=== PATIENT | male | born 1945 | race Caucasian/White ===

== ENCOUNTER 2020-05-24 14:47 | Inpatient (IN) | payer OTHER, MEDICARE ==
[~2020-05-24] VITALS: Ht 170.2 cm; Wt 77.5 kg
[2020-05-24 15:43] LABS: Hematocrit 38.9 % (37.0-53.0); Hemoglobin 12.9 g/dL (13.5-17.5); Mean Corpuscular HGB 33.6 pg (26.0-34.0); Mean Corpuscular HGB Conc 33.2 g/dL (31.5-36.5); Mean Corpuscular Volume 101 fL (80-100); Mean Platelet Volume 10.8 fL (9.1-12.4); NRBC ABSOLUTE 0.14 K/mm3 (0.00-0.02); NRBC Auto 0.6 /100 WBC (0.0-0.2); RDW Coefficient Variation 15.4 % (11.7-14.2); RDW Standard Deviation 56.7 fL (35.1-46.3); Red Blood Cell Count 3.84 M/mm3 (4.30-5.90); White Blood Cell Count 21.75 K/mm3 (4.00-11.30)
[2020-05-24 15:54] LABS: Platelet Count 42 K/mm3 (150-400)
[2020-05-24 15:55] LABS: International Normalized Ratio 1.07; Prothrombin Time Results 11.4 Sec (9.7-11.5)
[2020-05-24 15:57] LABS: Magnesium, Blood 2.1 mg/dL (1.6-2.4); Troponin I <0.015 ng/mL (0.000-0.040)
[2020-05-24 15:58] LABS: Alanine Aminotransfer (ALT/SGP 23 U/L (12-78); Albumin, Blood 4.1 g/dL (3.4-5.0); Alk Phos 64 U/L (50-136); Anion Gap 6 mmol/L (6-16); Aspartate Aminotrans (AST/SGOT 23 U/L (12-37); Bilirubin, Total 0.6 mg/dL (0.1-1.0); Blood Urea Nitrogen 17 mg/dL (8-24); Bun/Creatinine Ratio 19.7 (12.0-20.0); CO2, Blood 25 mmol/L (21-32); Calcium, Blood 8.9 mg/dL (8.5-10.1); Chloride, Blood 109 mmol/L (98-108); Creatinine, Blood 0.86 mg/dL (0.60-1.20); Glomerular Filtration Rate >60 (60-); Glucose, Blood 109 mg/dL (70-99); Potassium, Blood 4.8 mmol/L (3.5-5.5); Sodium, Blood 140 mmol/L (136-145); Total Protein, Blood 8.1 g/dL (6.4-8.2)
[2020-05-24 16:26] LABS: BASOPHILS PERCENT MAN 0 % (0-2); EOSINOPHILS PERCENT MAN 0 % (0-6); LYMPHOCYTES ABSOLUTE MAN 21.09 K/mm3 (0.84-5.20); LYMPHOCYTES PERCENT MAN 97 % (21-46); MONOCYTES PERCENT MAN 0 % (4-13); NEUTROPHILS ABSOLUTE MAN 0.65 K/mm3 (1.96-9.15); SEG NEUTROPHILS PERCENT MAN 3 % (41-73); TOTAL CELLS COUNTED 100
[2020-05-24] MEDS ORDERED: Hytrin2 MG PO (18:16)
[2020-05-24] MEDS ORDERED: ROPI.25 PO (18:16)
[2020-05-24] MEDS ORDERED: CYCL10 PO (18:16)
[2020-05-24] MEDS ORDERED: FINA5 PO (18:17)
[2020-05-25 04:18] LABS: BASOPHILS ABSOLUTE AUTO 0.03 K/mm3 (0.00-0.23); BASOPHILS PERCENT AUTO 0 % (0-2); EOSINOPHILS ABSOLUTE AUTO 0.07 K/mm3 (0.00-0.68); EOSINOPHILS PERCENT AUTO 0 % (0-6); Hematocrit 37.8 % (37.0-53.0); Hemoglobin 12.8 g/dL (13.5-17.5); Mean Corpuscular HGB 34.4 pg (26.0-34.0); Mean Corpuscular HGB Conc 33.9 g/dL (31.5-36.5); Mean Corpuscular Volume 102 fL (80-100); Mean Platelet Volume 11.8 fL (9.1-12.4); RDW Coefficient Variation 15.5 % (11.7-14.2); Red Blood Cell Count 3.72 M/mm3 (4.30-5.90); White Blood Cell Count 25.61 K/mm3 (4.00-11.30)
[2020-05-25 04:24] LABS: IMMATURE GRAN ABSOLUTE AUTO 0.02 K/mm3 (0.00-0.10); IMMATURE GRAN PERCENT AUTO 0 % (0-1); LYMPHOCYTES ABSOLUTE AUTO 23.63 K/mm3 (0.84-5.20); LYMPHOCYTES PERCENT AUTO 92 % (21-46); MONOCYTES ABSOLUTE AUTO 1.18 K/mm3 (0.16-1.47); MONOCYTES PERCENT AUTO 5 % (4-13); NEUTROPHILS ABSOLUTE AUTO 0.68 K/mm3 (1.96-9.15); NEUTROPHILS PERCENT AUTO 3 % (41-73)
[2020-05-25 04:25] LABS: Platelet Count 46 K/mm3 (150-400)
[2020-05-25 04:28] LABS: International Normalized Ratio 1.08; Prothrombin Time Results 11.5 Sec (9.7-11.5)
[2020-05-25 04:36] LABS: Anion Gap 5 mmol/L (6-16); Blood Urea Nitrogen 17 mg/dL (8-24); Bun/Creatinine Ratio 19.1 (12.0-20.0); CO2, Blood 25 mmol/L (21-32); Chloride, Blood 110 mmol/L (98-108); Creatinine, Blood 0.89 mg/dL (0.60-1.20); Glomerular Filtration Rate >60 (60-); Glucose, Blood 101 mg/dL (70-99); Potassium, Blood 4.1 mmol/L (3.5-5.5); Sodium, Blood 140 mmol/L (136-145)
--- NOTE | 2020-05-25 05:27 | NUR ---
SHIFT SUMMARY PT ARRIVED FROM ED AT BEGINNING OF SHIFT. PT ALERT AND ORIENTED X 4. HR TACHYCARDIC. PT ON CARDIZEM GTT. CURRENTLY AT 5 MG/HR. HR IN 110'S. BP STABLE. PT REPORTS NO CP OR PRESSURE. SCD ON R LEG. OXYGEN SATURATION MAINTAINED ABOVE 95%. PT ABLE TO TURN SELF IN BED NEEDED. PT CONTINENT OF URINE AND STOOL. WILL CONTINUE TO MONITOR UNTIL REPORT GIVEN TO DAYSEUNICE MCBRIDE.
--- NOTE | 2020-05-25 12:23 | NUR ---
Echocardiogram performed.
[2020-05-25 14:42] LABS: Performing Lab SYMBIODX; Test Name FLOW CYTOMETRY
[2020-05-25 15:19] LABS: Influenza A, PCR Negative (NEGATIVE); Influenza B, PCR Negative (NEGATIVE); Resp Syncytial Virus, PCR Negative (NEGATIVE); SARS-Cov-2 (COVID-19) PCR, MMC Negative (NEGATIVE)
--- NOTE | 2020-05-25 15:46 | NUR ---
PATIENT LEFT FOR IVC FILTER PLACEMENT, ALERT AND ORIENTED NO SIGNS OF ACUTE DISTRESS.
--- NOTE | 2020-05-25 17:12 | NUR ---
PATIENT RETURNED FROM IVC FILTER PLACEMENT, DENIES CHEST PAIN/PRESSURE, ALERT AND ORIENTED, DENIES PAIN. PATIENT REMAINS ON CARDIZEM GTT THIS SHIFT, 10 MG/HR AT THIS TIME, HR IN 90s-110s. PATIENT HAD EPISODE OF EMESIS, HR INCREASED TO 150s, RETURNED TO PREVIOUS RATE W/IN 10 MINUTES. NO SIGNS OF DISCHARGE OR TENDERNESS AT PROCEDURE SITE.
--- NOTE | 2020-05-26 05:34 | NUR ---
SHIFT SUMMARY PT UNABLE TO SLEEP T/O NIGHT. PT ALERT AND ORIENTED X 4. CARDIZEM GTT STOPPED AT 2349. HR 90'S-110'S. PT REPORTS NO CP OR PRESSURE. BP STABLE. SURGICAL SITE WNL. DRESSING C/D/I. OXYGEN SATURATION MAINTAINED ABOVE 92% ON RA. WILL CONTINUE TO MONITOR UNTIL REPORT GIVEN TO DAYSHIFT RN.
[2020-05-26 08:09] LABS: IMMUNOGLOBULIN A, QN, SERUM 130 mg/dL (61-437); IMMUNOGLOBULIN G, QN, SERUM 1755 mg/dL (603-1613); IMMUNOGLOBULIN M, QN, SERUM 28 mg/dL (15-143)
--- NOTE | 2020-05-26 08:20 | NUR ---
UPDATE: Pt HR elevated to 150-160. Restarted cardizem gtt at 5mg/hr and PO PRN cardizem given per orders. Will monitor and treat.
--- NOTE | 2020-05-26 16:05 | NUR ---
UPDATE: BP stable. HR 90-110 range. Stopped cardizem gtt. Pt denies needs. States that he is feeling good. Call light in reach.
--- NOTE | 2020-05-26 19:48 | NUR ---
NO ACUTE EVENTS THIS SHIFT, PATIENT ALERT AND ORIENTED AND DENIED CHEST PAIN/PRESSURE THIS SHIFT. PATIENT'S HEART RATE WAS MAINTAINING 110S-120S AT START OF SHIFT WITH INCREASES TO 140S-150S WITH ACTIVITY. CARDIZEM DRIP RESTARTED PER EMAR, RATE DECREASED AND REMAINED IN 90S-100S THROUGH MOST OF SHIFT. DR. GONZALEZ AT BEDSIDE, INSTRUCTED CHARGE NURSE YARI MCBRIDE TO STOP CARDIZEM DRIP, STOPPED PER EMAR. PATIENT ABLE TO AMBULATE INDEPENDENTLY IN ROOM, NO PAIN OR DISCOMFORT NOTED IN LLE. PATIENT STATES RELIEF THAT LLE SWELLING HAS RESOLVED.
[2020-05-27 03:58] LABS: BASOPHILS ABSOLUTE AUTO 0.05 K/mm3 (0.00-0.23); BASOPHILS PERCENT AUTO 0 % (0-2); EOSINOPHILS ABSOLUTE AUTO 0.08 K/mm3 (0.00-0.68); EOSINOPHILS PERCENT AUTO 0 % (0-6); Hemoglobin 13.2 g/dL (13.5-17.5); Mean Corpuscular HGB 33.5 pg (26.0-34.0); Mean Corpuscular Volume 102 fL (80-100); NRBC ABSOLUTE 0.03 K/mm3 (0.00-0.02); NRBC Auto 0.1 /100 WBC (0.0-0.2); RDW Coefficient Variation 15.4 % (11.7-14.2); RDW Standard Deviation 57.4 fL (35.1-46.3); Red Blood Cell Count 3.94 M/mm3 (4.30-5.90); White Blood Cell Count 27.24 K/mm3 (4.00-11.30)
[2020-05-27 04:00] LABS: IMMATURE GRAN ABSOLUTE AUTO 0.01 K/mm3 (0.00-0.10); IMMATURE GRAN PERCENT AUTO 0 % (0-1); LYMPHOCYTES ABSOLUTE AUTO 24.84 K/mm3 (0.84-5.20); LYMPHOCYTES PERCENT AUTO 91 % (21-46); MONOCYTES ABSOLUTE AUTO 1.48 K/mm3 (0.16-1.47); MONOCYTES PERCENT AUTO 5 % (4-13); Mean Platelet Volume 11.2 fL (9.1-12.4); NEUTROPHILS ABSOLUTE AUTO 0.78 K/mm3 (1.96-9.15); NEUTROPHILS PERCENT AUTO 3 % (41-73); Platelet Count 51 K/mm3 (150-400)
[2020-05-27 04:15] LABS: Anion Gap 2 mmol/L (6-16); Blood Urea Nitrogen 33 mg/dL (8-24); Bun/Creatinine Ratio 34.2 (12.0-20.0); CO2, Blood 28 mmol/L (21-32); Calcium, Blood 8.9 mg/dL (8.5-10.1); Chloride, Blood 108 mmol/L (98-108); Creatinine, Blood 0.97 mg/dL (0.60-1.20); Glomerular Filtration Rate >60 (60-); Glucose, Blood 92 mg/dL (70-99); Potassium, Blood 4.7 mmol/L (3.5-5.5); Sodium, Blood 138 mmol/L (136-145)
--- NOTE | 2020-05-27 05:32 | NUR ---
SHIFT SUMMARY PT A&O X4. VSS. MONITOR SHOWING AFIB W/ HR AVERAGING 80's-110 W/ OCCASSIONAL, NONSUSTAINED HR INCREASE TO 120's NOTED ON TELEMETRY. SPO2 > 92% ON RA. PT REPORTS LLE SWELLING IMPROVED W/ MINIMAL SWELLING NOTED TO L ANKLE ONLY. NO EVENTS OVER NIGHT.
[2020-05-27] MEDS ORDERED: Lisinopril2.5 MG PO (12:10)
[2020-05-27] MEDS ORDERED: METO25ER PO (12:11)
[2020-05-27] MEDS ORDERED: TAMS.4ER PO (12:12)
[2020-05-27] MEDS ORDERED: XARELTO10 M2 PO (12:12)
--- NOTE | 2020-05-27 12:45 | NUR ---
PATIENT PROVIDED DISCHARGE INFO REGARDING FOLLOW UP PLANS, REASONS TO RETURN TO THE HOSPITAL, AND MEDICATION INFORMATION PER ASHLEY WITH PHARMACY. PATIENT VERBALIZED UNDERSTANDING, NO SIGNS OF ACUTE DISTRESS AT THIS TIME.
[2020-05-29 22:10] LABS: CELLS ANALYZED Comment: (.); CELLS COUNTED Comment: (.); DIRECTOR REVIEW: Comment: (.); FISH RESULT Comment: (.); INTERPRETATION Comment: (.); SPECIMEN TYPE Comment: (.)
[2020-05-31 07:57] LABS: Result SEE LABOUT RESULTS
== END 2020-05-27 13:00 | disposition home or self-care (01) | DRG 299 ==
LOC: ER 14:47 → PCU 14:48
PROVIDERS: Emergency Medicine; Internal Medicine; Internal Medicine Hematology & Oncology; Radiology Diagnostic Radiology; ADMIT Family Medicine
PROC: 3E02340 Introduction of Influenza Vaccine into Muscle, Percutaneous Approach (ICD-10-PCS; 2020-05-24)
PROC: 06H03DZ Insertion of Intraluminal Device into Inferior Vena Cava, Percutaneous Approach (ICD-10-PCS; principal; 2020-05-25)
DX: I82.412 Acute embolism and thrombosis of left femoral vein (principal); I50.43 Acute on chronic combined systolic (congestive) and diastolic (congestive) heart failure; C91.10 Chronic lymphocytic leukemia of B-cell type not having achieved remission; N40.0 Benign prostatic hyperplasia without lower urinary tract symptoms; I82.432 Acute embolism and thrombosis of left popliteal vein; I82.4Y2 Acute embolism and thrombosis of unspecified deep veins of left proximal lower extremity; D69.6 Thrombocytopenia, unspecified; I48.91 Unspecified atrial fibrillation; Z20.822 Contact with and (suspected) exposure to COVID-19; I11.0 Hypertensive heart disease with heart failure; Z23 Encounter for immunization
CPT/HCPCS: 0241U; 36415; 37191; 71045; 71260; 74177; 76937; 80048; 80053; 81263; 82784; 83735; 84443; 84484; 85025; 85610; 88184; 88185; 88271; 88275; 93005; 93010; 93306; 93971; 96365; 96366; 96376; 99152; 99285-25; A9270; C1769; C1880; C1894; G0008; G0378; J1644; J2250; J2405; J2550; J3010; J7040; Q2038; Q9967

== ENCOUNTER 2020-07-09 01:01 | Day surgery (SDC) | payer OTHER, MEDICARE ==
[2020-07-07 09:21] LABS: Hemoglobin 6.9 g/dL (13.5-17.5); Mean Corpuscular HGB 33.5 pg (26.0-34.0); Mean Corpuscular HGB Conc 34.5 g/dL (31.5-36.5); Mean Corpuscular Volume 97 fL (80-100); Mean Platelet Volume 11.4 fL (9.1-12.4); Platelet Count 54 K/mm3 (150-400); RDW Coefficient Variation 17.5 % (11.7-14.2); RDW Standard Deviation 60.3 fL (35.1-46.3); Red Blood Cell Count 2.06 M/mm3 (4.30-5.90)
[2020-07-07 09:32] LABS: White Blood Cell Count 0.33 K/mm3 (4.00-11.30)
[2020-07-07 09:49] LABS: Alanine Aminotransfer (ALT/SGP 29 U/L (12-78); Albumin, Blood 3.1 g/dL (3.4-5.0); Albumin/Globulin Ratio 0.9 (0.8-1.8); Alk Phos 54 U/L (50-136); Anion Gap 6 mmol/L (6-16); Aspartate Aminotrans (AST/SGOT 17 U/L (12-37); Bilirubin, Total 1.5 mg/dL (0.1-1.0); Blood Urea Nitrogen 23 mg/dL (8-24); Bun/Creatinine Ratio 22.3 (12.0-20.0); CO2, Blood 26 mmol/L (21-32); Calcium, Blood 8.5 mg/dL (8.5-10.1); Chloride, Blood 105 mmol/L (98-108); Creatinine, Blood 1.03 mg/dL (0.60-1.20); Globulin, Blood 3.4 g/dL (2.2-4.0); Glomerular Filtration Rate >60 (60-); Glucose, Blood 89 mg/dL (70-99); Potassium, Blood 4.2 mmol/L (3.5-5.5); Sodium, Blood 137 mmol/L (136-145); Total Protein, Blood 6.5 g/dL (6.4-8.2)
[2020-07-07 09:50] LABS: BASOPHILS PERCENT MAN 0 % (0-2); EOSINOPHILS PERCENT MAN 0 % (0-6); LYMPHOCYTES ABSOLUTE MAN 0.06 K/mm3 (0.84-5.20); LYMPHOCYTES PERCENT MAN 20 % (21-46); MONOCYTES ABSOLUTE MAN 0.05 K/mm3 (0.16-1.47); MONOCYTES PERCENT MAN 16 % (4-13); NEUTROPHILS ABSOLUTE MAN 0.21 K/mm3 (1.96-9.15); SEG NEUTROPHILS PERCENT MAN 64 % (41-73); TOTAL CELLS COUNTED 25
[~2020-07-09 01:01] MED LIST: CYCL10 PO; FINA5 PO; Hytrin2 MG PO; Lisinopril2.5 MG PO; METO25ER PO; ROPI.25 PO; TAMS.4ER PO; XARELTO10 M2 PO
[2020-07-09] MEDS ORDERED: ONDA4ODT PO (15:36)
[2020-07-09] MEDS ORDERED: LEVOFLOXACIN750 MG PO (15:36)
== END 2020-07-09 12:25 | disposition home or self-care (01) ==
LOC: ATC 01:01
PROVIDERS: Internal Medicine Hematology & Oncology
DX: C91.12 Chronic lymphocytic leukemia of B-cell type in relapse (principal); D64.81 Anemia due to antineoplastic chemotherapy; I48.20 Chronic atrial fibrillation, unspecified; D70.1 Agranulocytosis secondary to cancer chemotherapy; T45.1X5A Adverse effect of antineoplastic and immunosuppressive drugs, initial encounter; Z87.891 Personal history of nicotine dependence; Z86.718 Personal history of other venous thrombosis and embolism; Z79.01 Long term (current) use of anticoagulants
CPT/HCPCS: 36415; 36430; 80053; 85025; 86850; 86900; 86901; 86920; J7050; P9016